=== PATIENT | male | born 1965 | race Caucasian/White ===

== ENCOUNTER 2025-06-08 04:40 | Emergency (ER) | payer SELFPAY ==
[2025-06-08 04:48] VITALS: BP 199/103; PULSE 86; RESP 20; TEMP 36.7; O2SAT 95; BMI 17.9
[2025-06-08 05:04] LABS: Glucose Urine UA Trace (Normal); Nitrate Urine Negative (Negative); Specific Gravity, Urine 1.020 (1.005-1.030)
[2025-06-08 05:09] LABS: Add Urine Microscopic? YES
[2025-06-08 05:56] LABS: Hematocrit 50.6 % (37-53); Hemoglobin 17.00 g/dL (11.27-16.99); Mean Corpuscular HGB Conc 33.6 g/dL (30-55); Mean Corpuscular Hemoglobin 29.7 pg (27-33); Mean Corpuscular Volume 88.5 fl (82-101); Nucleated Red Blood Cells % 0 %; Platelet Count 224 10^3/cmm (157-399); Red Blood Count 5.72 10^6/uL (3.85-5.65); White Blood Count 9.22 10^3/uL (3.29-11.43)
--- NOTE | 2025-06-08 06:11 | USR_ITS ---
PROCEDURE INFORMATION: Exam: US Scrotum Exam date and time: 06/08/2025 7:17 AM Age: 59 years old Clinical indication: Scrotum pain; Additional info: Test pain TECHNIQUE: Imaging protocol: Real-time ultrasound of the scrotum and contents with color Doppler and image documentation. COMPARISON: CT kidney stone [id number] 06/08/2025 6:48 AM FINDINGS: Right testicle: The right testicle measures 4 x 2.7 x 2 cm in size. There are a few calcifications involving the testicle (testicular microlithiasis. Otherwise, testicular echogenicity is normal. There is normal color and duplex Doppler blood flow to the right testicle. Left testicle: The left testicle measures 2.9 x 2.5 x 3.5 cm in size. There are small calcifications involving the left testicle suggesting testicular microlithiasis. Testicular echogenicity is otherwise normal. There is normal duplex and color Doppler blood flow to the left testicle. Epididymides: Normal. Scrotum/soft tissues: There is a small right hydrocele. There is a small left hydrocele. There is also a small left varicocele. US/US scrotum [id number] IMPRESSION: 1. Testicular microlithiasis. 2. Small bilateral hydroceles. 3. Small left varicocele.
[2025-06-08 06:15] LABS: Alanine Aminotransferase 45 U/L (0-41); Albumin Level 4.3 g/dL (3.5-5.2); Alkaline Phosphatase 64 U/L (40-130); Anion Gap 14.3 (5-19); Aspartate Amino Transferase 28 U/L (0-40); Blood Urea Nitrogen 13 mg/dL (6-20); Calcium 9.0 mg/dL (8.5-10.5); Carbon Dioxide 25 mmol/L (22-29); Chloride 101 mmol/L (98-107); Creatinine Clr Calc Pharmacy 80.3587; Globulin 3.0 g/dL (1.3-4.6); Glucose 166 mg/dL (65-115); Osmolality Calculated 286 mOsm/kg (285-295); Potassium 4.3 mmol/L (3.5-5.1); Sodium 136 mmol/L (136-145); Total Protein 7.3 g/dL (6.6-8.7)
--- NOTE | 2025-06-08 06:17 | CTR_ITS ---
PROCEDURE INFORMATION: Exam: CT Abdomen And Pelvis Without Contrast Exam date and time: 06/08/2025 6:48 AM Age: 59 years old Clinical indication: Abdominal pain; Flank; Left; Additional info: Abd pain TECHNIQUE: Imaging protocol: Computed tomography of the abdomen and pelvis without contrast. Radiation optimization: All CT scans at this facility use at least one of these dose optimization techniques: automated exposure control; mA and/or kV adjustment per patient size (includes targeted exams where dose is matched to clinical indication); or iterative reconstruction. COMPARISON: No relevant prior studies available. RADIATION DOSE METRICS: Total DLP (mGy-cm): 441.34 FINDINGS: Lungs: Lung bases are clear as visualized. Diaphragm: There may be a small hiatal hernia. Liver: Normal. No mass. Gallbladder and biliary ducts: Normal. No calcified stones. No ductal dilation. Pancreas: Normal. No ductal dilation. Spleen: Normal. No splenomegaly. Adrenal glands: Normal. No mass. Kidneys and ureters: There is mild hydronephrosis involving the left kidney. There is hydroureter extending to the middle 3rd of the left ureter where there is a 5 mm stone present. The kidneys otherwise have a normal noncontrast appearance. Stomach and bowel: There are scattered colonic diverticula. No large bowel wall thickening is appreciated. No dilated loops of large or small bowel is appreciated. Appendix: No evidence of appendicitis. Intraperitoneal space: Unremarkable. No free air. No significant fluid collection. Vasculature: The aorta is normal in caliber. There is calcified plaque involving the aorta and its branch vessels. Lymph nodes: There are a few small mesenteric and retroperitoneal lymph nodes. No enlarged nodes are appreciated. Urinary bladder: Unremarkable as visualized. Reproductive: Unremarkable as visualized. Bones/joints: There is grade 1 anterolisthesis of L5 in relation to S1 secondary to bilateral pars defects. Soft tissues: There is a tiny fat filled periumbilical hernia. CT/CT kidney stone [id number] IMPRESSION: 1. Mild hydronephrosis on the left secondary to a 5 mm stone within the middle 3rd of the left ureter. 2. Diverticulosis. 3. Please see above comments for additional details.
--- NOTE | 2025-06-08 06:22 | ED_ITS ---
HPI - Male Genitourinary 2 General: Chief complaint: Urogenital-Male Stated complaint: having severe pain testicles Time Seen by Provider: 06/08/25 06:10 Source: patient Mode of arrival: ambulatory Limitations: no limitations History of Present Illness: 59-year-old male states that over the la st 4 to 5 days has been having intermittent left testicle pain he states he also had some pain in his left lower abdomen. The pains been sharp in nature he denies any dysuria denies any fevers. He rates his pain a 4 out of 10 currently denies any vomiting or diarrhea Associated symptoms: Deny nausea or vomiting Related Data Previous Rx's ?Medication ?Instructions ?Recorded hydrocodone 5 mg-acetaminophen 325 1 tab PO Q6H PRN pa in #14 tabs 06/08/25 mg tablet ondansetron 4 mg disintegrating 4 mg PO Q6H PRN nausea and 06/08/25 tablet vomiting #14 tabs tamsulosin 0.4 mg capsule (Flomax) 0.4 mg PO DAILY #5 caps 06/08/25 Allergies Allergy/AdvReac Type Severity Reaction Status Date / Time No Known Allergies Allergy Verified 06/08/25 04:54 Review of Systems 2 Const: Denies: fever(s), chills, body aches or change in appetite ENMT: Denies: throat pain or dental pain Card: Denies: chest pain Resp: Denies: dyspnea GI: Denies: abdominal pain, nausea, vomiting or diarrhea : Reports: testicular pain Musc: Denies: neck pain or back pain Skin/Breast: Denies: rash Neuro: Denies: headache(s) Physical Exam 2 Const: COMMON NORMALS: no acute distress, patient oriented x3 and healthy appearing HENMT: COMMON NORMALS: normocephalic and atraumatic HEAD & SCALP: n ormocephalic and atraumatic Eye: COMMON NORMALS: conjunctivae normal CONJUNCTIVA: Yes conjunctivae normal Neck/C-Spine: COMMON NORMALS: full ROM and supple Chest: COMMONS NORMALS: normal inspection of the chest Resp: COMMON NORMALS: normal respiratory effort Cardio: COMMON NORMALS: regular rate RATE: regular rate GI: COMMON NORMALS: Normal to inspection, nondistended, normoactive bowel sounds present, Soft to palpation, non-tender and no masses PALPATION: Yes Soft to palpation : OTHER: Slight tenderness left testicle no obvious abnormality Extremity: COMMON NORMALS: normal to inspection and full ROM Neuro: COMMON NORMALS: patient oriented x3, moves all extremities and no focal motor deficits Psych: COMMON NORMALS: mental status grossly normal, Normal thought process present and cooperative THOUGHT PROCESS: Normal thought process present Skin: COMMON NORMALS: no rashes or lesions noted and no wounds GENERAL SKIN EXAM: no rashes or lesions noted Course 2 Vital Signs: Vital signs: Vital Signs Temperature 98.1 F 06/08/25 04:48 Pulse Rate 79 06/08/25 07:39 Respiratory Rate 20 H 06/08/25 04:48 Blood Pressure 153/81 06/08/25 07:39 Pulse Oximetry 96 06/08/25 07:39 MDM - Male Medical Decision Making Patient presents here with flank pain testicle pain does have a kidney stone pain is improved here he is to follow-up with urology will prescribe pain meds he is to return if worsening he understands agrees to plan. Medical Records I reviewed the patient's medical records. Lab Data I reviewed the patient's lab results. 06/08/25 05:48 06/08/25 05:48 Radiology Impressions Abdomen/Pelvis CT 06/08/25 06:17 IMPRESSION: 1. Mild hydronephrosis on the left secondary to a 5 mm stone within the middle 3rd of the left ureter. 2. Diverticulosis. 3. Please see above comments for additional details. Laboratory Results WBC 9.22 10^3/uL (3.29-11.43) 06/08/25 05:48 RBC 5.72 10^6/uL (3.85-5.65) H 06/08/25 05:48 Hgb 17.00 g/dL (11.27-16.99) H 06/08/25 05:48 Hct 50.6 % (37-53) 06/08/25 05:48 MCV 88.5 fl (82-101) 06/08/25 05:48 MCH 29.7 pg (27-33) 06/08/25 05:48 MCHC 33.6 g/dL (30-55) 06/08/25 05:48 RDW 12.8 % (12.1-15.1) 06/08/25 05:48 Plt Count 224 10^3/cmm (157-399) 06/08/25 05:48 MPV 8.2 fL (7.4-10.4) 06/08/25 05:48 Neut % (Auto) 77.6 % 06/08/25 05:48 Lymph % (Auto) 14.4 % 06/08/25 05:48 Taylor % (Auto) 5.9 % 06/08/25 05:48 Eos % (Auto) 1.0 % 06/08/25 05:48 Baso % (Auto) 0.4 % 06/08/25 05:48 Neut # (Auto) 7.16 10^3/uL (1.8-7.7) 06/08/25 05:48 Lymph # (Auto) 1.3 10^3/uL (0.8-4.8) 06/08/25 05:48 Taylor # (Auto) 0.5 10^3/uL (0.2-0.9) 06/08/25 05:48 Eos # (Auto) 0.1 10^3/uL (0.0-0.8) 06/08/25 05:48 Baso # (Auto) 0.0 10^3/uL (0.0-0.1) 06/08/25 05:48 Nucleated RBC % (auto) 0 % 06/08/25 05:48 Nucleated RBCs # 0.0 /100WBC 06/08/25 05:48 Sodium 136 mmol/L (136-145) 06/08/25 05:48 Potassium 4.3 mmol/L (3.5-5.1) 06/08/25 05:48 Chloride 101 mmol/L (98-107) 06/08/25 05:48 Carbon Dioxide 25 mmol/L (22-29) 06/08/25 05:48 Anion Gap 14.3 (5-19) 06/08/25 05:48 BUN 13 mg/dL (6-20) 06/08/25 05:48 Creatinine 0.9 mg/dL (0.7-1.2) 06/08/25 05:48 GFR Calculation 86.7 mL/min (90-130) L 06/08/25 05:48 Glucose 166 mg/dL (65-115) H 06/08/25 05:48 Calculated Osmolality 286 mOsm/kg (285-295) 06/08/25 05:48 Calcium 9.0 mg/dL (8.5-10.5) 06/08/25 05:48 Total Bilirubin 0.7 mg/dL (0.15-1.2) 06/08/25 05:48 AST 28 U/L (0-40) 06/08/25 05:48 ALT 45 U/L (0-41) H 06/08/25 05:48 Alkaline Phosphatase 64 U/L (40-130) 06/08/25 05:48 Total Protein 7.3 g/dL (6.6-8.7) 06/08/25 05:48 Albumin 4.3 g/dL (3.5-5.2) 06/08/25 05:48 Globulin 3.0 g/dL (1.3-4.6) 06/08/25 05:48 Urine Color Nelson (Yellow) A 06/08/25 04:59 Urine Appearance Cloudy (CLEAR) A 06/08/25 04:59 Urine pH 6.0 (5-7) 06/08/25 04:59 Ur Specific [place] 1.020 (1.005-1.030) 06/08/25 04:59 Urine Protein 2+ (Negative) A 06/08/25 04:59 Urine Glucose (UA) Trace (Normal) H 06/08/25 04:59 Urine Ketones Negative (Negative) 06/08/25 04:59 Urine Blood 3+ (Negative) A 06/08/25 04:59 Urine Nitrate Negative (Negative) 06/08/25 04:59 Urine Bilirubin Negative (Negative) 06/08/25 04:59 Urine Urobilinogen 1.0 mg/dL (Negative) 06/08/25 04:59 Ur Leukocyte Esterase Trace (Negative) A 06/08/25 04:59 Urine RBC >100 /hpf (0-2) H 06/08/25 04:59 Urine WBC 0-5 /hpf (0-5) 06/08/25 04:59 Ur Squamous Epith Cells 0-5 /hpf (0-5) 06/08/25 04:59 Amorphous Sediment Not Reportable 06/08/25 04:59 Urine Bacteria None seen /hpf (NONE) 06/08/25 04:59 Hyaline Casts 0-4 /lpf H 06/08/25 04:59 All radiology interpretation(s) finalized by discharge Discharge Plan Discharge Patient Disposition: Home Clinical Impression: Kidney stone Condition: Stable Prescriptions: New hydrocodone-acetaminophen 5-325 mg tablet 1 tab PO Q6H PRN (Reason: pain) Qty: 14 0RF ondansetron 4 mg tablet,disintegrating 4 mg PO Q6H PRN (Reason: nausea and vomiting) Qty: 14 0RF tamsulosin [Flomax] 0.4 mg capsule 0.4 mg PO DAILY Qty: 5 0RF Discharge Orders: Discharge ED (Routine); Ordered 06/08/25 Ordered By: Ann-Marie Vega Discharge Diet: Advance as tolerated Discharge Activity: Resume usual activity Patient Instructions: Kidney Stones (ED), Opioid Safety Print Language: Cambodian Coding Level of Care Code ED Manager Mba for Chelsey Tiwari
[2025-06-08] MEDS: morphine 4 mg/mL SDV 1 mL IVP (06:41)
[2025-06-08] MEDS: ondansetron 2 mg/ML SDV 2 mL 4 MG IVP (06:41)
--- NOTE | 2025-06-08 06:56 | PC.NURSE ---
this RN took over pt care at 0650 from LEILA Aguilar.
[2025-06-08] MEDS: HYDROmorphone 0.5 MG/0.5 ML INJ 1 MG IVP (07:32)
[2025-06-08 07:39] VITALS: BP 153/81; PULSE 79; O2SAT 96
[2025-06-08 08:15] VITALS: BP 176/129; PULSE 74; O2SAT 95
--- NOTE | 2025-06-09 10:00 | DCPLANNER ---
faxed referral packet and pushed images to [facility]
== END 2025-06-08 08:15 | disposition home or self-care (01) ==
PROVIDERS: General Practice; Emergency Provider Emergency Medicine
DX: N20.0 Calculus of kidney (principal)
CPT/HCPCS: 36415; 74176; 76870; 80053; 81001; 85025; 87086; 96374; 96375; 99285; J1171; J1885; J2270; J2405